=== PATIENT | female | born 1960 | race African-American/Black ===

== ENCOUNTER 2022-01-31 13:16 | Emergency (ER) | payer MEDICAID ==
[~2022-01-31] VITALS: Ht 162.6 cm; Wt 69.0 kg
[2022-01-31 14:21] VITALS: BP 152/75
[2022-01-31] MEDS ORDERED: MELO-105 MT (17:50)
== END 2022-01-31 18:03 | disposition home or self-care (01) ==
LOC: ER 13:16
DX: M17.11 Unilateral primary osteoarthritis, right knee (principal); I10 Essential (primary) hypertension
CPT/HCPCS: 73562; 99283